=== PATIENT | male | born 1970 | race Caucasian/White ===

== ENCOUNTER 2022-09-18 17:57 | Emergency (ER) | payer SELFPAY ==
[~2022-09-18] VITALS: Ht 175.3 cm; Wt 88.0 kg
[2022-09-18 18:02] VITALS: BP 150/90
== END 2022-09-18 21:26 | disposition home or self-care (01) ==
LOC: ER 18:07
DX: I10 Essential (primary) hypertension (principal)
CPT/HCPCS: 93005; 99283